=== PATIENT | female | born 1955 | race Caucasian/White ===

== ENCOUNTER 2017-06-30 17:27 | Observation (INO) ==
[2017-07-01] MEDS ORDERED: Acetaminophen 325 MG TABLET PO PRN (03:54)
[2017-07-01] MEDS ORDERED: Naloxone 0.4 MG/ML INJ IVP PRN (03:54)
[2017-07-01] MEDS ORDERED: D5% in Water 1,000 ML IVC PRN (03:57)
[2017-07-01] MEDS ORDERED: *HR* Dextrose 50 % in Water (Syg) 50 ML SYRINGE IVP PRN (03:57)
[2017-07-01] MEDS ORDERED: Dextrose Gel 15 GM/37.5 ML TUBE PO PRN ×2 (03:57)
--- NOTE | 2017-07-01 03:59 | Internal Med History&Physical ---
Date of Encounter: 07/01/17 Time of Encounter: 03:58 Assessment and Plan (1) TIA (transient ischemic attack) Current visit: Yes Status: Suspected Patient presented with left-sided numbness and difficulty ambulating that occurred over 2 days. Symptoms have now completely resolved. Possible TIA. We will get MRI of the brain. Check carotid Dopplers and 2-D echocardiogram. Check lipid panel, A1c level. Continue aspirin and statin. Telemetry monitoring. Qualifiers: Transient cerebral ischemia type: other Qualified Code(s): G45.8 - Other transient cerebral ischemic attacks and related syndromes (2) Obesity (BMI 30-39.9) Current visit: Yes Status: Acute (3) Essential hypertension Current visit: Yes Status: Chronic monitor blood pressure. Continue carvedilol (4) Diabetes mellitus Current visit: Yes Status: Chronic Monitor blood sugars. Place patient on diabetic diet. Sliding scale insulin. Check A1c level. Qualifiers: Diabetes mellitus type: type 2 Diabetes mellitus complication status: with hyperglycemia Diabetes mellitus correction insulin use: without terminal operations manager use Qualified Code(s): E11.65 - Type 2 diabetes mellitus with hyperglycemia Internal Medicine - H&P: HPI Chief complaint: Left sided numbness, difficulty walking Admitted From: Emergency Dept Plans for Post Hospital Care: Home History of present illness: Ms. Beard is a 61 year old female patient with history of essential hypertension, diabetes who presented to the ER at [facility] with complaints of difficulty ambulating that lasted for several minutes yesterday morning. With that and she came to the ER at [facility] had completely subsided. She also reported numbness in her left upper and lower extremities lasting for about 20 minutes the previous day. The symptoms have also since subsided. She denies prior episodes of similar complaints. She has no prior history of TIA or stroke. She does report a family history of stroke. She denies any slurred speech, visual defects, facial droop. She had some nausea associated with these symptoms. No chest pain. No diarrhea. She has also noted an increase in her blood sugars yesterday morning. Past Med Surg Social Fam HX - Past Medical History Attestation: Yes The following information was validated with the patient. Source: patient Medical history: diabetes, hyperlipidemia, hypertension Psychiatric history: no psych history - Social History Smoking Status: Never smoker Smokeless Tobacco Status: No Alcohol use: none Drug use: none - Family History Mother Hx Family Cardiac Disorders: Yes (CVA) Father Hx Family Respiratory Disorders: Yes Internal Medicine - H&P: Meds Aspirin [Lo-Dose Aspirin EC] 81 mg PO ONCE 06/30/17 [History] Atorvastatin [Lipitor] 40 mg PO ONCE 06/30/17 [History] Carvedilol [Coreg] 25 mg PO BID 06/30/17 [History] Cyanocobalamin (Vitamin B-12) [Vitamin B-12] 500 mcg PO ONCE 06/30/17 [History] Glimepiride [Amaryl] 4 mg PO ONCE 06/30/17 [History] Lisinopril [Zestril] 20 mg PO ONCE 06/30/17 [History] Metformin HCl [Metformin HCl ER] 1,000 mg PO BID 06/30/17 [History] 3 Allergy/AdvReac Type Severity Reaction Status Date / Time No Known Allergies Allergy Verified 07/01/17 04:15 All Systems PM: A 10-system review of systems was performed and is negative for pertinent findings except as documented above in the HPI. - Constitutional Constitutional: no chills, no fever(s), no night sweats - EENT Eyes: no change in vision, no discharge, no pain, no photophobia Ears: no ear discharge, no ear pain, no tinnitus Nose, mouth and throat: no dysphagia, no nasal discharge, no neck pain, no sore throat - Cardiovascular Cardiovascular ROS IM: no chest pain, no diaphoresis, no dyspnea, no lightheadedness, no palpitations, no syncope - Respiratory Respiratory: no cough, no dyspnea, no wheezing, no excessive phlegm production - Gastrointestinal Gastrointestinal: no abdominal pain, no diarrhea, no hematemesis, no hematochezia, no melena, no nausea, no vomiting - Genitourinary Genitourinary: no change in urinary stream, no dysuria, no flank pain, no hematuria - Musculoskeletal Musculoskeletal ROS IM: no numbness, no tingling - Integumentary Integumentary IM: no rash, no unusual bruising - Neurological Neurological ROS: numbness, no confusion, no convulsions, no focal weakness, no tingling, no tremor(s) - Hematologic/Lymphatic Hematologic/Lymphatic: no easy bruising - Constitutional Vitals: Temp Pulse Resp BP Pulse Ox 97.5 F L 78 16 137/74 95 07/01/17 03:36 07/01/17 03:36 07/01/17 03:36 07/01/17 03:36 07/01/17 03:36 General appearance: Present: cooperative, A&O X 3, pleasant, no acute distress, obese, answers questions appropriately - Eye Eye exam: Present: EOMI, PERRL - Neck Neck exam general surgery: Present: supple, trachea midline. Absent: lymphadenopathy - Respiratory Respiratory exam: Present: CTAB. Absent: accessory muscle use, rales, rhonchi, wheezes - Cardiovascular Cardiovascular exam: Present: RRR, +S1, +S2. Absent: diastolic murmur, gallop, rubs, systolic murmur - GI/Abdominal GI/Abdominal exam: Present: normal bowel sounds, soft, no peritoneal signs. Absent: distended, tenderness - Extremities Exam Extremities exam: Present: warm, radial pulses palpable and symmetrical. Absent : calf tenderness, cyanotic, pedal edema - Neurological Exam Neurological exam: Present: CN II-XII intact, oriented X3, no focal deficits, strengths equal and symetr throughout. Absent: pronater drift, facial droop, speech deficit Additional comments: Strength and sensation normal in all 4 extremities Internal Med - H&P Results - Labs Labs: Creatinine 0.66, BUN 22, WBC 9 - EKG Data EKG shows normal: sinus rhythm - EKG Data EKG comments: 07/01/17 04:38 Sinus rhythm with slow R-wave progression - Impressions CT head shows no acute process
[2017-07-01] MEDS: Lisinopril 20 MG TABLET PO SCH (05:58)
[2017-07-01] MEDS: *HR* Heparin 5,000 UNIT/ML VIAL SQ SCH ×2 (05:58→17:27)
[2017-07-01] MEDS: Aspirin Enteric Coated 81 MG Tablet PO SCH (05:58)
[2017-07-01 07:01] LABS: Hemoglobin A1C 7.1 %
[2017-07-01 07:09] LABS: BUN/Creatinine Ratio 37 (6-26); Blood Urea Nitrogen 19 mg/dL (8-23); Calcium 8.8 mg/dL (8.6-10.3); Carbon Dioxide 27 mEq/L (23-29); Chloride 106 mEq/L (98-107); Chol/HDL Ratio 4.8 (0-4.9); Cholesterol 164 mg/dL (< 200); Glucose 145 mg/dL (70-105); HDL Cholesterol 34 mg/dL (40-59); LDL Cholesterol,Calculated 97 mg/dL (0-99); Osmolality,Calculated 293 (280-300); Sodium 139 mEq/L (136-145); Triglycerides 164 mg/dL (< 150); eGFR For African Americans > 60 (> 60); eGFR For Non-African Americans > 60 (> 60)
[2017-07-01 07:50] LABS: Basophils % 0.6 %; Eosinophils # 0.3 K/mcL (0.0-0.6); Eosinophils % 4.3 %; Hematocrit 38.7 % (35.3-44.9); Hemoglobin 12.8 g/dL (11.5-15.4); Immature Granulocytes % 0.8 % (0-4); Lymphocytes # 1.9 K/mcL (0.6-4.6); Lymphocytes % 28.7 %; Mean Corpuscular HGB Conc 33.1 g/dL (31.6-35.5); Mean Corpuscular Hemoglobin 30.5 pg (28.0-33.3); Mean Corpuscular Volume 92.4 fL (83.0-100.0); Mean Platelet Volume 10.4 fL (9.4-12.4); Monocytes # 0.6 K/mcL (0.0-1.3); Monocytes % 9.5 %; Neutrophils # 3.7 K/mcL (1.6-8.9); Platelet Count 255 K/mcL (140-400); Red Blood Count 4.19 M/mcL (3.82-4.97); Red Cell Distribution Width 14.4 % (11.5-14.5); Segmented Neutrophils % 56.1 %
[2017-07-01] MEDS: Insulin LISPRO 300 UNITS/3 ML VIAL SQ SCH ×3 (08:34→17:12)
--- NOTE | 2017-07-01 11:35 | Internal Med Progress Note ---
Date of Encounter: 07/01/17 Time of Encounter: 10:10 - Assessment and plan (1) TIA (transient ischemic attack) Current Visit: Yes Status: Suspected Assessment and plan: Pt presented with left sided numbness and ataxia that occurred and resolved 2 days prior to presentation to ED. Pt has no symptoms now. Extremities are strong and equal bilaterally, gait is steady, speech is clear. She denies headaches ,n/v, dizziness, or vision changes. PT did not identify needs. A1c 7.1%, triglycerides elevated, cholesterol WNL. MRI, carotids, and echo are ordered and not completed. Continue ASA and statin Continue telemetry Qualifiers: Transient cerebral ischemia type: other Qualified Code(s): G45.8 - Other transient cerebral ischemic attacks and related syndromes (2) Obesity (BMI 30-39.9) Current Visit: Yes Status: Chronic Assessment and plan: Chronic. Continue to encourage lifestyle modifications. (3) Essential hypertension Current Visit: Yes Status: Chronic Assessment and plan: Chronic. Continue home medications and monitor vitals. (4) Diabetes mellitus Current Visit: Yes Status: Chronic Assessment and plan: A1c 7.1%. Continue SSI, diabetic diet, and accuchecks achs. Continue home medications on discharge. Qualifiers: Diabetes mellitus type: type 2 Diabetes mellitus complication status: with hyperglycemia Diabetes mellitus laborer marine terminal insulin use: without laborer marine terminal use Qualified Code(s): E11.65 - Type 2 diabetes mellitus with hyperglycemia (5) DVT prophylaxis Current Visit: Yes Status: Acute Assessment and plan: Heparin SQ. - Time Spent With Patient less than 15 minutes - Subjective Interval history: Pt was seen and assessed at bedside at 1010a.m. Pt is alert and awake and states that all symptoms have resolved and she feels well. At this time, all testing is still pending. Pt denies headache, n/v/d, abdominal pain, dizziness, chest pain or SOB. She is alert and oriented, pleasant and denies questions. - Constitutional Vitals: Temp Pulse Resp BP Pulse Ox 97.7 F 77 18 136/75 94 07/01/17 07:19 07/01/17 07:19 07/01/17 07:19 07/01/17 07:19 07/01/17 07:19 General appearance: Present: cooperative, A&O X 3, pleasant, no acute distress, obese, answers questions appropriately - Head Head exam: Present: atraumatic, normal inspection, normocephalic - Eye Eye exam: Present: normal appearance, conjuntiva pink, sclera anicteric - Neck Neck exam general surgery: Present: normal inspection, supple, trachea midline. Absent: lymphadenopathy - Respiratory Respiratory exam: Present: CTAB. Absent: accessory muscle use, rales, respiratory distress, rhonchi, wheezes - Cardiovascular Cardiovascular exam: Present: RRR, +S1, +S2. Absent: diastolic murmur, gallop, rubs, systolic murmur - GI/Abdominal GI/Abdominal exam: Present: normal bowel sounds, soft, no peritoneal signs. Absent: distended, hepatomegaly, tenderness - Extremities Exam Extremities exam: Present: normal capillary refill, warm, radial pulses palpable and symmetrical. Absent: calf tenderness, cyanotic, pedal edema, tenderness - Neurological Exam Neurological exam: Present: alert, normal gait, oriented X3, no focal deficits, strengths equal and symetr throughout. Absent: altered, motor sensory deficit, pronater drift, facial droop, speech deficit - Skin Skin exam: Present: dry, intact, normal color, warm. Absent: rash Internal Medicine: Result - Labs CBC & Chem 7: 07/01/17 05:56 07/01/17 05:56 Labs: Short CBC 07/01/17 Range/Units 05:56 WBC 6.6 (4.3-11.1) K/mcL Hgb 12.8 (11.5-15.4) g/dL Hct 38.7 (35.3-44.9) % Plt Count 255 (140-400) K/mcL Neutrophils # 3.7 (1.6-8.9) K/mcL BMP 07/01/17 05:56 Sodium 139 Potassium 4.0 Chloride 106 Carbon Dioxide 27 BUN 19 Creatinine 0.52 L Glucose 145 H Calcium 8.8 Consult Discharge Plan - Plan Referrals: Shaina Beckford CNP [Primary Care Provider] -
[2017-07-01] MEDS ORDERED: Insulin LISPRO 300 UNITS/3 ML VIAL SQ SCH (21:00)
[2017-07-02] MEDS: *HR* Heparin 5,000 UNIT/ML VIAL SQ SCH (06:46)
[2017-07-02 06:52] VITALS: BP 134/72
[2017-07-02] MEDS: Aspirin Enteric Coated 81 MG Tablet PO SCH (08:01)
[2017-07-02] MEDS: Lisinopril 20 MG TABLET PO SCH (08:01)
[2017-07-02] MEDS ORDERED: Lisinopril 20 MG TABLET PO SCH (09:00)
[2017-07-02] MEDS ORDERED: Aspirin Enteric Coated 81 MG Tablet PO SCH (09:00)
[2017-07-02] MEDS: Insulin LISPRO 300 UNITS/3 ML VIAL SQ SCH ×2 (09:59→11:53)
--- NOTE | 2017-07-02 13:07 | Discharge Summary ---
Date of Encounter: 07/02/17 Time of Encounter: 10:50 - Discharge Diagnosis (1) TIA (transient ischemic attack) Priority: Primary Status: Suspected Comments: Pt presented with left sided numbness and ataxia that occurred and resolved 2 days prior to presentation to ED. Pt has no symptoms now. Extremities are strong and equal bilaterally, gait is steady, speech is clear. Pt has been ambulating all over the floor without difficulty. She denies headaches ,n/v, dizziness, or vision changes. PT did not identify needs. A1c 7.1%, triglycerides elevated, cholesterol WNL. MRI is negative for acute infarct, multifocal small vessel ischemic changes bilaterally. Echocardiogram showed an LVEF of 60% with mild LV DD no evidence of PFO, no significant neurologic dysfunction. Carotid Dopplers showed nonstenotic plaque in the left ICA, within normal limits and right. Symptoms have resolved and pt is ready for discharge. Patient will continue aspirin and Lipitor. Brain MRI 07/01/17 03:56 IMPRESSION: Multifocal small-vessel ischemic changes bilaterally without acute infarct Increased signal in the medulla, greatest right of midline. This is not seen on the FLAIR images and may be artifactual or related to prior ischemic change. There is no low T1 signal to suggest vacuolization. D/ / Kade Diaz / Kade Diaz Interpreting Provider: Kade Diaz Echocardiogram 07/01/17 03:56 Impressions: LVEF 60%. Normal LV chamber size, wall thickness and function. Mild left ventricular diastolic dysfunction. Normal right ventricular structure and function. No evidence of a PFO with agitated saline contrast. No evidence of pulmonary hypertension. No significant valvular dysfunction. Left Ventricular Wall Motion: Rest Echo Findings All wall segments showed normal motion. Qualifiers: Transient cerebral ischemia type: other Qualified Code(s): G45.8 - Other transient cerebral ischemic attacks and related syndromes (2) Obesity (BMI 30-39.9) Priority: Secondary Status: Chronic Comments: Chronic. Continue to encourage lifestyle changes. (3) Essential hypertension Priority: Secondary Status: Chronic Comments: Well controlled, continue home medications. (4) Diabetes mellitus Priority: Secondary Status: Chronic Comments: A1c is 7.1%. Continue home medication and Accu-Chek regimen after discharge. Qualifiers: Diabetes mellitus type: type 2 Diabetes mellitus complication status: with hyperglycemia Diabetes mellitus technician terminal and repeater insulin use: without assisted use Qualified Code(s): E11.65 - Type 2 diabetes mellitus with hyperglycemia (5) DVT prophylaxis Priority: Secondary Status: Acute Comments: Heparin SQ and pt is ambulatory. - Discharge Medications Home Medications: Aspirin [Lo-Dose Aspirin EC] 81 mg PO DAILY 06/30/17 [History] Atorvastatin [Lipitor] 40 mg PO DAILY 06/30/17 [History] Carvedilol [Coreg] 25 mg PO BID 06/30/17 [History] Cyanocobalamin (Vitamin B-12) [Vitamin B-12] 500 mcg PO ONCE 06/30/17 [History] Glimepiride [Amaryl] 4 mg PO ONCE 06/30/17 [History] Lisinopril [Zestril] 20 mg PO DAILY 06/30/17 [History] Metformin HCl [Metformin HCl ER] 1,000 mg PO BID 06/30/17 [History] Pioglitazone [Actos] 45 mg PO DAILY 07/01/17 [History] Allergies/Adverse Reactions: 3 Allergy/AdvReac Type Severity Reaction Status Date / Time No Known Allergies Allergy Verified 07/01/17 16:29 Procedures/tests Complete & Pending: Procedures Performed prior 72 hours Category Date Time Status MR head/brain wo con [MR] Routine MRI 07/01/17 03:56 Completed EV carotid duplex imaging BI Routine Y 07/01/17 03:56 Completed EV echocardiogram Routine Y 07/01/17 03:56 Completed Date of admission: 06/30/17 19:38 Primary care physician: Shaina Beckford, Consults: 07/01/17 04:41 Consult to Occupational Therapy [CONS] Routine Comment: Evaluate, develop and implement POC Reason for Consult: Difficulty walking on presentation Consult to Physical Therapy [CONS] Routine Comment: Evaluate, develop and implement POC Reason for Consult: Difficulty walking on presentation Discharging clinician: Elysia Garcia Anticipated date of discharge: 07/02/17 - Patient Status Disposition: Home, Self-Care Condition: Good Functional capacity at discharge: independent ambulation Overall status at discharge: patient is back to baseline - Discharge Instructions Follow Up With: Shaina Beckford CNP [Primary Care Provider] - 07/08/17 1:00 pm Additional Instructions: Follow-up with her primary care provider in the next 7-10 days. Return to the emergency department as needed for any other problems or concerns , or if symptoms return or worsen. Take your daily medications as he normally would. Return to her normal activities and diet as tolerated. - Diet and Activity Activity: increase activity as tolerated Diet: diabetic diet, low fat, low cholesterol Hospital course: Ms. Beard is a 61 year old female - Time Spent with Patient Total time spent providing and/or coordinating discharge services: - Constitutional Vitals: Temp Pulse Resp BP Pulse Ox 97.5 F L 76 16 134/72 95 07/02/17 10:58 07/02/17 10:58 07/02/17 10:58 07/02/17 10:58 07/02/17 10:58 General appearance: Present: cooperative, A&O X 3, pleasant, no acute distress, obese, answers questions appropriately - Head Head exam: Present: atraumatic, normal inspection, normocephalic - Eye Eye exam: Present: normal appearance, conjuntiva pink, sclera anicteric - Neck Neck exam general surgery: Present: supple, trachea midline. Absent: lymphadenopathy, tenderness - Respiratory Respiratory exam: Present: CTAB. Absent: accessory muscle use, rales, respiratory distress, rhonchi, wheezes - Cardiovascular Cardiovascular exam: Present: RRR, +S1, +S2. Absent: diastolic murmur, gallop, rubs, systolic murmur - GI/Abdominal GI/Abdominal exam: Present: normal bowel sounds, soft. Absent: distended, hepatomegaly, tenderness - Extremities Exam Extremities exam: Present: normal capillary refill, warm, radial pulses palpable and symmetrical. Absent: calf tenderness, cyanotic, pedal edema - Neurological Exam Neurological exam: Present: alert, oriented X3, no focal deficits. Absent: facial droop, speech deficit - Skin Skin exam: Present: dry, intact, normal color, warm. Absent: rash
== END 2017-07-02 14:05 | disposition home or self-care (01) ==
LOC: 3BNU
PROVIDERS: ADMIT Internal Medicine Nephrology; ATTEND Registered Nurse